=== PATIENT | male | born 1960 | race Caucasian/White ===

== ENCOUNTER 2021-10-27 19:07 | Emergency (ER) | payer BC ==
[~2021-10-27] VITALS: Ht 185.4 cm; Wt 72.6 kg
[2021-10-27] MEDS ORDERED: ROSU5TAB PO (19:35)
[2021-10-27] MEDS ORDERED: CLOP75TA15 PO (19:35)
[2021-10-27] MEDS ORDERED: ASPI81TA31 PO (19:35)
[2021-10-27] MEDS ORDERED: METF-440 PO (19:35)
--- NOTE | 2021-10-27 19:48 | NUR ---
DR. HARDING AT BEDSIDE, MSE IN PROGRESS.
[2021-10-27] MEDS ORDERED: HYDROMORPHONE 1 MG/1 ML DISP.SYRIN IM ONE ×2 (20:00→21:15)
[2021-10-27] MEDS ORDERED: ONDANSETRON HCL 4 MG TABLET PO ONE (20:00)
--- NOTE | 2021-10-27 20:12 | NUR ---
XRAY AT BEDSIDE.
[2021-10-27] MEDS ORDERED: OXYC-128 PO (20:41)
[2021-10-27] MEDS ORDERED: HYDROMORPHONE 2 MG/1 ML DISP.SYRIN ONE (21:21)
[2021-10-27] MEDS ORDERED: CYANOCOBALAMIN 1000 MCG/ML VIAL IM ONE (21:45)
[2021-10-27] MEDS ORDERED: CYANOCOBALAMIN 1000 MCG/ML VIAL ONE (21:48)
--- NOTE | 2021-10-27 22:19 | NUR ---
Patient discharged to home in stable condition. Written and verbal after care instructions given. Patient verbalizes understanding of instructions. Stressed follow up or return to ER for worsening s/s. Denies any pain/discomfort upon discharge. No changes in LOC. Picked up by family.
[2021-10-27 22:20] VITALS: BP 128/80
[2021-10-28] MEDS ORDERED: PREG150C PO (11:57)
[2021-10-28] MEDS ORDERED: ANTIBIOTIC (11:57)
== END 2021-10-27 22:21 | disposition home or self-care (01) ==
LOC: ER 19:08
DX: T87.81 Dehiscence of amputation stump (principal); Z89.511 Acquired absence of right leg below knee; E78.5 Hyperlipidemia, unspecified; F17.211 Nicotine dependence, cigarettes, in remission; E53.8 Deficiency of other specified B group vitamins; E11.9 Type 2 diabetes mellitus without complications; Z79.84 Long term (current) use of oral hypoglycemic drugs; I65.22 Occlusion and stenosis of left carotid artery; Z79.02 Long term (current) use of antithrombotics/antiplatelets
CPT/HCPCS: 36415; 73590; 82607; 96372 ×2; 99284; J1170 ×2; J3420; A4663; Q0162